=== PATIENT | female | born 1980 | race Two or more races ===

== ENCOUNTER 2025-04-25 14:14 | Emergency (ER) | payer MEDICAID, SELFPAY ==
[2025-04-25 14:31] VITALS: BP 137/82; PULSE 90; RESP 16; TEMP 36.8; O2SAT 98; BMI 34.5
--- NOTE | 2025-04-25 15:59 | EDNOTE_ITS ---
ED General RME/HPI General Chief complaint: General Adult/Misc Complain Stated complaint: Joint point X 4 days Time Seen by Provider: 04/25/25 15:50 Source: patient Arrival date/time: 04/25/25 14:14 Mode of arrival: ambulatory Limitations: no limitations RME / HPI RME / HPI narrative: 44-year-old female presents to the ED with a complaint of left and right shoulde r pain as well as left and right hip pain. Patient denies trauma. Pain began 3 to 4 days ago. Onset (ago): day(s) (3 to 4 days) Radiation: non-radiation Severity: moderate Severity scale (1-10): 5 Quality: aching Consistency: constant Relieving factors: immobilization Exacerbating factors: movement Associated symptoms: denies other symptoms Treatments prior to arrival: none Related Data Previous Rx's ?Medication ?Instructions ?Recorded clindamycin HCl 300 mg capsule 300 mg PO QID #28 caps 05/21/20 clindamycin HCl 300 mg capsule 300 mg PO QID #28 caps 05/21/20 tramadol 50 mg tablet 50 mg PO Q8H PRN pain #15 ta bs 07/17/20 acetaminophen 500 mg capsule 1,000 mg (2 x 500 mg) PO Q8HR PRN 11/15/21 pain #60 caps ibuprofen 800 mg tablet 800 mg PO TID PRN pain #30 t abs 11/15/21 ibuprofen 600 mg tablet 600 mg PO TID PRN pain #30 t abs 04/25/25 Allergies Allergy/AdvReac Type Severity Reaction Status Date / Time No Known Allergies Allergy Verified 04/25/25 14:18 Review of Systems Constitutional Constitutional: Reports system reviewed and no additional complaints, except as documented Eyes Eyes: Reports system reviewed and no additional complaints, except as documented, Denies dry eyes, Denies exophthalmos and Reports floaters Cardiovascular Cardiovascular: Denies chest pain with activity and Denies claudication ED Exam Narrative Physical exam: The left and right shoulders are tender to palpation at the area of the head of the humerus to include the clavicles. Patient continues to have full range of motion and there is no apparent neurofocal deficit present. The left and right hips continue to have full range of motion and patient is able to ambulate without assistance. She does retain full range of motion at the hips and hips are tender to palpation at the area of the trochanters. Neurovascular is intact and there is no apparent neurofocal deficit. General Limitations: Present no limitations General appearance: Present alert and in no apparent distress Head Head exam: Present atraumatic Eye Eye exam: Present normal appearance and EOMI ENT ENT exam: Present normal exam, normal oropharynx and mucous membranes moist Neck Neck exam: Present normal inspection, full ROM and trachea midline Chest Chest inspection: Present normal inspection and symmetric chest wall rise Extremities Exam Extremities exam: Present normal inspection and full ROM Back Exam Back exam: Present normal inspection and full ROM Neurological Exam Neurological exam: Present alert and oriented X3 Psychiatric Psychiatric exam: Present normal affect and normal mood Skin Skin exam: Present warm, dry, intact and normal color Course Course Course Narrative: CRP, CBC, CMP, ESR, x-ray of the left hip and x-ray of the right shoulder. Toradol 30 mg Quality Measures none Orders Category Date Time Status XR hip RT w pelvis 2-3V Stat Exams 04/25/25 16:09 Completed XR shoulder RT min 2V Stat Exams 04/25/25 16:09 Completed CBC Stat Lab 04/25/25 16:19 Completed CMP [Comprehensive Metabolic Panel] Stat Lab 04/25/25 16:19 Completed CRP [C-Reactive Protein] Stat Lab 04/25/25 16:19 Completed ESR [Sed Rate (ESR)] Stat Lab 04/25/25 16:19 Completed HCG Qualitative,Urine Stat Lab 04/25/25 17:20 Completed UA [Urinalysis] Stat Lab 04/25/25 17:20 Completed Ketorolac Inj [Toradol Inj] Med 04/25/25 16:04 Discontinued 30 mg IM X1 ONE Vital Signs Vital signs: Vital Signs Temperature 98.2 F 04/25/25 14:31 Pulse Rate 90 04/25/25 14:31 Respiratory Rate 16 04/25/25 14:31 Blood Pressure 137/82 H 04/25/25 14:31 Pulse Oximetry (%) 98 04/25/25 14:31 Oxygen Delivery Method Room Air 04/25/25 14:31 Pulse ox room air 98% Discharge Plan Plan Patient Disposition: HOME (Self Care) Discharge Disposition comment: Discharge no apparent distress Patient condition on transfer: Stable Prescriptions/Referrals Prescriptions/Med Rec: New ibuprofen 600 mg tablet 600 mg PO TID PRN (Reason: pain) Qty: 30 0RF No Action ibuprofen 800 mg tablet 800 mg PO TID PRN (Reason: pain) Qty: 30 0RF acetaminophen 500 mg capsule 1,000 mg PO Q8HR PRN (Reason: pain) Qty: 60 0RF clindamycin HCl 300 mg capsule 300 mg PO QID Qty: 28 0RF clindamycin HCl 300 mg capsule 300 mg PO QID Qty: 28 0RF tramadol 50 mg tablet 50 mg PO Q8H PRN (Reason: pain) Qty: 15 0RF Referrals: No Primary/Family,Physician [Primary Care Provider] - In 1 week Problem List Clinical Impression: Calcific tendonitis Patient/Caregiver Discharge Instructions Discharge Activity: activity as tolerated Print Language: [place] Stand Alone Forms: Cely Award Info., Work/School Release, Patient Portal Info Letter MONICA/KIRK Supervising Physician SUZANNE Supervising Physician: Ashli DANIELLE Narrative MDM hospital course: Patient will be discharged in no apparent distress and she is to primary care physician within a week of today's visit. I will send ibuprofen to the pharmacy of her choice. She will also have a note for work. Clinical Information Provided by patient Medical Records Reviewed None NA Meds/Rx Considered, not Ordered None Labs/Rad/Tests considered, not Ordered None Chronic Illness/Social Conditions which may negatively complicate care or outcome(s)-explain: None or not applicable EKG EKG not done Lab Interpretation Labs: none Imaging Imaging interpretation: none Medication Administration(s) none Medication Administration History Discontinued Medications Ketorolac Tromethamine (Ketorolac Inj 60 Mg/2 Ml Vial) 30 mg IM X1 ONE Stop: 04/25/25 16:05 Last Admin: 04/25/25 19:59 Dose: 30 mg Documented By: KF DONE Diagnosis Differential diagnosis: INFLAMMATION OF JOINT VS DJD Differential dx and/or dx ruled out: N/A Most likely dx, and/or detailed dx discussion: NA Dispositon Disposition: Discharge Home Disposition comments: NA
--- NOTE | 2025-04-25 16:09 | XR_ITS ---
Examination:Right hip AP, lateral, AP pelvis 3 views Technique: Hip AP lateral, AP pelvis, 3 views Exam date and time:April 25, 2025 1840 hours INDICATIONS: Right hip pain beginning 4 days ago. FINDINGS: No right hip fracture or dislocation No significant hip arthritic change Bones of the pelvis intact IMPRESSION: No hip or pelvic fracture No significant hip arthritic change.
--- NOTE | 2025-04-25 16:09 | XR_ITS ---
Examination: Shoulder,right, 3 views Technique: Shoulder AP internal rotation, AP external rotation, Y view shoulder, 3 views Exam date and time :April 25, 2025 1641 hours INDICATION: Right shoulder pain 4 days FINDINGS: Right shoulder soft tissue calcific tendinitis No fracture or dislocation No foreign body IMPRESSION: Calcific tendinitis
[2025-04-25 16:31] LABS: Basophils # (Auto) 0.1 Thou/mm3 (0.0-0.2); Basophils % (Auto) 1 % (0-2.5); Eosinophils # (Auto) 0.2 Thou/mm3 (0.0-0.5); Eosinophils % (Auto) 3 % (0-10); Hemoglobin 11.7 g/dL (12.0-16.0); Immature Granulocytes % (Auto) 2 % (0-0); Immature Granulocytes Auto 0.17 Thou/mm3 (0.00-0.00); Lymphocytes # (Auto) 1.9 Thou/mm3 (1.0-4.8); Lymphocytes % (Auto) 23 % (10-50); Mean Corpuscular HGB Conc 33.4 g/dl (31.0-37.0); Mean Corpuscular Hemoglobin 28.1 pg (25.0-35.0); Mean Corpuscular Volume 84 fL (80-100); Monocytes # (Auto) 0.8 Thou/mm3 (0.0-0.8); Monocytes % (Auto) 9 % (0-12); Neutrophils # (Auto) 5.3 Thou/mm3 (1.8-7.7); Neutrophils % (Auto) 63 % (37-80); Nucleated Red Blood Cell % 0 /100 WBC (0); Platelet Count 299 Thou/mm3 (140-440); Red Blood Count 4.16 Miln/mm3 (4.00-5.20); White Blood Count 8.4 Thou/mm3 (3.6-11.0)
[2025-04-25 16:53] LABS: Alanine Aminotransferase 39 U/L (10-49); Albumin, Serum 4.1 gm/dL (3.5-5.0); Albumin/Globulin Ratio 1.3 (1.2-2.2); Alkaline Phosphatase 96 U/L (46-116); Anion Gap 5 (7-16); Aspartate Amino Transferase 35 U/L (0-34); BUN/Creatinine Ratio 10 Ratio (12-20); Bilirubin,Total 0.9 mg/dL (0.3-1.2); Blood Urea Nitrogen 6 mg/dL (9-23); C-Reactive Protein < 0.5 mg/dL (0.0-0.9); Carbon Dioxide 27.7 mMol/L (20.0-31.0); Chloride 108 mMol/L (98-107); Creatinine (Component) 0.6 mg/dL (0.6-1.3); Estimated Creatinine Clearance 124.1 mL/min (>60); Globulin 3.2 gm/dL (2.3-3.5); Glucose 102 mg/dL (74-106); Osmolality,Calculated 278 (275-295); Potassium 3.9 mMol/L (3.4-5.1); Sodium 141 mMol/L (136-145); Total Protein 7.3 gm/dL (5.7-8.2); eGFR > 60 See Note
[2025-04-25 17:21] LABS: Sed Rate (ESR) 20 mm/hr (0-20)
[2025-04-25 17:32] LABS: Collection Type, Urine Clean Catch
[2025-04-25 17:45] LABS: Bilirubin,Urine Negative (Negative); Blood,Urine Negative (Negative); Clarity,Urine Clear (Clear/Hazy); Color,Urine Lt-Yellow (Lt Yel-Yel); Glucose, Urine Negative (Negative); Ketones,Urine Negative (Negative); Leukocyte Esterase,Urine Negative (Negative); Nitrite,Urine Negative (Negative); Protein,Urine Negative (Neg - Trace); RBC,Urine 9 /hpf (0-3); Specific Gravity,Urine 1.022 (1.001-1.035); Squamous Epithelial Cell,Urine 2 /hpf (0-5); Urobilinogen,Urine Negative mg/dL (0.0-1.0); WBC,Urine 1 /hpf (0-5)
[2025-04-25 18:07] LABS: HCG Qualitative,Urine Negative
[2025-04-25] MEDS: KETOROLAC INJ 60 MG/2 ML VIAL 30 MG IM (19:59)
== END 2025-04-25 20:32 | disposition home or self-care (01) ==
PROVIDERS: Physician Assistant; Emergency Provider Emergency Medicine
DX: M75.31 Calcific tendinitis of right shoulder (principal); M25.551 Pain in right hip
CPT/HCPCS: 36415; 73030; 73502; 80053; 81001; 81025; 85025; 85652; 86140; 96372; 99283; J1885